=== PATIENT | female | born 1955 | race Caucasian/White ===

== ENCOUNTER 2017-04-24 20:59 | Observation (INO) | payer BC, OTHER ==
[2017-04-24] MEDS ORDERED: ONDANSETRON 4 MG/2 ML VIAL IVP STA (21:20)
[2017-04-24] MEDS ORDERED: SODIUM CHLORIDE 0.9% 1,000 ML IV STA (21:20)
[2017-04-24] MEDS ORDERED: NITROGLYCERIN OINT 1 INCH/GM PACKET TOPICAL STA (21:20)
[2017-04-24] MEDS ORDERED: ASPIRIN 81 MG PO STA (21:20)
--- NOTE | 2017-04-24 21:49 | ED ---
Chest Pain HPI - General Chief Complaint: Chest Pain Stated Complaint: Chest pain Time Seen by Provider: 04/24/17 21:08 Source: patient Mode of arrival: wheelchair Limitations: no limitations - History of Present Illness Initial Comments: 62 years old female presented with a chest pain it started 4 PM it is located at the border of epigastrium as well as lower chest does not radiate his stays right there she has no history of heart disease in the past she status post gallbladder disease andshe is status post cholecystectomy denies any peptic ulcer disease denies any nausea no vomiting no cold sweats no shortness of breath and there is no pleuritic chest pain at all depressed do not aggravate the pain. No abdominal pain no frequency urgency dysuria no symptoms of TIA or CVA - Related Data Home Medications Medication Instructions Recorded Confirmed Aspirin 81 mg PO DAILY 01/28/14 04/24/17 Bumetanide 0.5 mg PO DAILY 08/21/14 04/24/17 Omeprazole [PriLOSEC] 20 mg PO DAILY PRN 08/21/14 04/24/17 traMADol HCl [Ultram] 50 - 100 mg PO Q6H PRN 08/21/14 04/24/17 Acetaminophen Tab [Tylenol] 1,000 mg PO Q6HR PRN 08/22/15 04/24/17 Albuterol Sulfate [Accuneb] 1.25 mg INHALATION Q6HR PRN 04/24/17 04/24/17 Allergies Allergy/AdvReac Type Severity Reaction Status Date / Time morphine Allergy Severe Chest Pain Verified 04/24/17 21:15 adhesive Allergy Rash/Hives Verified 04/24/17 21:15 codeine Allergy Rapid Verified 04/24/17 21:15 Heart Rate Iodinated Contrast- Oral and Allergy Vomiting Verified 04/24/17 21:15 IV Dye [Iodinated Contrast Media - IV Dye] naproxen [From Naprosyn] Allergy Nausea & Verified 04/24/17 21:15 Vomiting & Diarrhea Sulfa (Sulfonamide Allergy Rash/Hives Verified 04/24/17 21:15 Antibiotics) hydromorphone HCl AdvReac Nausea & Verified 04/24/17 21:15 [From Dilaudid] Vomiting Review of Systems ROS Statement: Those systems with pertinent positive or pertinent negative responses have been documented in the HPI. ROS Other: All systems not noted in ROS Statement are negative. EKG Findings - EKG Comments: EKG Findings:: EKG is normal sinus rhythm ventricular rate is 79 RI interval is 136 QRS duration is 90 QT/QTC 394/4 5150 mL EKG does not reveal ST elevation or ST depression Past Medical History Past Medical History: Asthma, COPD, GERD/Reflux, Hyperlipidemia, Hypertension, Pneumonia Additional Past Medical History / Comment(s): HYPOGLYCEMIA History of Any Multi-Drug Resistant Organisms: None Reported Past Surgical History: Cholecystectomy, Hysterectomy Additional Past Surgical History / Comment(s): COLONOSCOPY Past Anesthesia/Blood Transfusion Reactions: No Reported Reaction Past Psychological History: No Psychological Hx Reported Smoking Status: Former smoker Past Alcohol Use History: None Reported Past Drug Use History: None Reported - Past Family History Mother Family Medical History: Dementia, Hypertension Additional Family Medical History / Comment(s): Parkinson's Father Family Medical History: Pneumonia General Exam - General Exam Comments Initial Comments: General: The patient is awake and alert, in no distress, and does not appear acutely ill. Skin: Skin is warm and dry and no rashes or lesions are noted. Eye: Pupils are equal, round and reactive to light, extra-ocular movements are intact; there is normal conjunctiva bilaterally. Ears, nose, mouth and throat: There are moist mucous membranes and no oral lesions. Neck: The neck is supple, there is no tenderness or JVD. Cardiovascular: There is a regular rate and rhythm. No murmur, rub or gallop is appreciated. Respiratory: To auscultation bilateral, no wheezing no rhonchi no distress respiratory muhammad noticed Gastrointestinal: Mildly tender in epigastric area positive bowel sounds no guarding no rebounds Back: There is no tenderness to palpation in the midline. There is no obvious deformity. Musculoskeletal: Normal ROM, no tenderness, There is no pedal edema. There is no calf tenderness or swelling. No cords were appreciated. Neurological: CN II-XII intact, Cranial nerves III through XII are intact. There are no obvious motor or sensory deficits. Coordination appears grossly intact. Speech is normal. Psychiatric: Cooperative, appropriate mood & affect, normal judgment. Limitations: no limitations Course Vital Signs 04/24/17 21:02 Temperature 98.6 F Pulse Rate 86 Respiratory 18 Rate Blood Pressure 144/91 O2 Sat by Pulse 92 L Oximetry Patient was reassessed at 2300, troponin, EKG, CBC, LFTs, pancreatic enzymes are within normal range considering that she is above 50 and she has multiple comorbidities one set of negative cardiac markers does not really rule out ischemic heart disease considering disc factors her BMI is 43.1 she has a history of hypertension and then numb do the observation admission for 3 sets of cardiac markers and cardiology consult him a this was discussed with the patient she agrees with the Disposition Clinical Impression: Chest pain Disposition: ADMITTED IP TO THIS HOSP Condition: Good Referrals: Toby Dobson MD [Primary Care Provider] - 1-2 days
[2017-04-24 22:13] LABS: Basophils # (A) 0.1 k/uL (0-0.2); Basophils % (A) 1 %; Eosinophils # (A) 0.1 k/uL (0-0.7); Eosinophils % (A) 2 %; HCT 44.4 % (34.0-46.0); HGB 14.2 gm/dL (11.4-16.0); Lymphocytes # (A) 1.4 k/uL (1.0-4.8); Lymphocytes % (A) 21 %; MCH 28.9 pg (25.0-35.0); MCHC 31.9 g/dL (31.0-37.0); MCV 90.7 fL (80.0-100.0); Mean Platelet Volume 7.5; Monocytes # (A) 0.4 k/uL (0-1.0); Monocytes % (A) 6 %; Neutrophils # (A) 4.6 k/uL (1.3-7.7); Neutrophils % (A) 68 %; Platelet Count 244 k/uL (150-450); RDW 14.1 % (11.5-15.5); WBC 6.8 k/uL (3.8-10.6)
[2017-04-24 22:18] LABS: Partial Thromboplastin Time 23.4 sec (22.0-30.0); Prothrombin Time 10.1 sec (9.0-12.0)
[2017-04-24 22:19] LABS: ALT 43 U/L (9-52); AST 37 U/L (14-36); Albumin 4.3 g/dL (3.5-5.0); Alkaline Phosphatase 95 U/L (38-126); Amylase 42 U/L (30-110); Anion Gap 9 mmol/L; Blood Urea Nitrogen 16 mg/dL (7-17); Calcium 9.4 mg/dL (8.4-10.2); Carbon Dioxide 31 mmol/L (22-30); Chloride 102 mmol/L (98-107); Glucose 110 mg/dL (74-99); Lipase 117 U/L (23-300); Potassium 4.6 mmol/L (3.5-5.1); Sodium 142 mmol/L (137-145); Total Bilirubin 0.6 mg/dL (0.2-1.3); Total Protein 7.6 g/dL (6.3-8.2)
[2017-04-24 22:30] LABS: Creatine Kinase 45 U/L (30-135)
[2017-04-24 22:43] LABS: Creatine Kinase MB <0.2 ng/mL (0.0-2.4); Troponin I <0.012 ng/mL (0.000-0.034)
--- NOTE | 2017-04-24 22:56 | XR ---
EXAMINATION TYPE: XR chest 2V DATE OF EXAM: 04/24/2017 COMPARISON: 01/28/2014 HISTORY: Chest pain TECHNIQUE: Frontal and lateral views of the chest are obtained. FINDINGS: There is no heart failure. There is mild coarsening of interstitial markings. Thoracic aor ta is atheromatous. I see no pleural effusion. There is small linear density in the left lower lung f ield. Bony thorax appears intact. IMPRESSION: Subsegmental atelectasis in the left lower lobe. No heart failure. Normal heart. There i s improved aeration of the left lower lobe compared to old exam.
[2017-04-24] MEDS ORDERED: NITROGLYCERIN SL TABS 0.4 MG TAB SUBLINGUAL PRN (23:13)
[2017-04-24] MEDS ORDERED: ALBUTEROL NEBULIZED 2.5 MG/3 ML INHALATION PRN (23:24)
[2017-04-24] MEDS ORDERED: PANTOPRAZOLE 40 MG TABLET PO PRN (23:24)
[2017-04-24] MEDS ORDERED: traMADol 50 MG TAB PO PRN (23:24)
[2017-04-24] MEDS ORDERED: ONDANSETRON 4 MG/2 ML VIAL IM STA (23:59)
[2017-04-25 00:24] VITALS: RESP 18
[2017-04-25 00:34] VITALS: BMI 43.1
[2017-04-25] MEDS: ACETAMINOPHEN TAB 500 MG TAB PO PRN ×2 (00:46→07:28)
[2017-04-25 04:36] LABS: Cholesterol 189 mg/dL (<200); HDL Cholesterol 40 mg/dL (40-60); LDL Cholesterol,Calculated 126 mg/dL (0-99); Triglycerides 113 mg/dL (<150)
[2017-04-25 04:48] LABS: Creatine Kinase 40 U/L (30-135)
[2017-04-25 05:02] LABS: Creatine Kinase MB <0.2 ng/mL (0.0-2.4); Troponin I <0.012 ng/mL (0.000-0.034)
[2017-04-25 08:03] VITALS: PULSE 80
[2017-04-25 08:42] LABS: Glucose,Whole Blood 96 mg/dL (75-99)
[2017-04-25] MEDS ORDERED: BUMETANIDE 0.5 MG TABLET PO SCH (09:00)
[2017-04-25] MEDS ORDERED: ASPIRIN 325 MG TAB PO SCH (09:00)
--- NOTE | 2017-04-25 10:21 | CONS ---
CONSULTATION Ms. Lassiter is a 62-year-old female, who is seen for cardiac evaluation. Patient gives a history that she went out for lunch, she had some chicken wings and a vanilla milkshake and after that she started having some epigastric discomfort which was a sharp pain radiating up to the substernal area. The pain was increasing when she turns back, she did not had any nausea vomiting or sweating. Patient came to the emergency room. EKG was unremarkable. Patient was admitted to the hospital. Since admission, patient is not having any pain and the cardiac enzymes are normal. Patient has a history of hypertension, atypical angina. Patient had a cardiac catheterization done about 1 year ago which did not show any significant coronary artery disease. HOME MEDICATIONS: Include aspirin, Prilosec, AcuNav. Patient is allergic to NAPROXEN, IODINE DYE and DILAUDID. REVIEW OF THE SYSTEM: Otherwise unremarkable. PAST MEDICAL HISTORY: Includes a history of cholecystectomy, hysterectomy, history of colonoscopy. SMOKING HISTORY: Patient is a former smoker. PHYSICAL EXAMINATION: At present reveals a 62-year-old, obesely-built female who does not appear to be in any acute distress. Patient's blood pressure is 140/80 mmHg. HEENT examination is negative. Neck is supple. There is no increase in jugular venous pressure. Both the carotid pulses are felt. There is no bruit. Chest is symmetrical. Heart, the PMI is not felt. First and second heart sounds are normal. There is no evidence of any murmur. Lungs are clinically clear to auscultation and percussion. Abdomen is soft. Liver and spleen are not enlarged. Bowel sounds are heard. Extremities, peripheral pulsations are 2+. EKG shows normal sinus rhythm without any acute ischemic changes. The patient two sets of cardiac enzymes are normal. IMPRESSION: Atypical chest pain. EKGs and cardiac enzymes are normal. We will do the echo and Doppler study. If the Echo and Doppler study done are normal, patient can be discharged home. She will follow with Dr. Crowell. Can have a stress test as an outpatient. MMODL / IJN: [id number] /
[2017-04-25 10:49] LABS: Creatine Kinase 43 U/L (30-135)
[2017-04-25 11:02] LABS: Creatine Kinase MB <0.2 ng/mL (0.0-2.4); Troponin I <0.012 ng/mL (0.000-0.034)
[2017-04-25 12:08] VITALS: BP 160/84; TEMP 97.7
--- NOTE | 2017-04-25 13:10 | ECHOF ---
Referral Reason:chest pain MEASUREMENTS -------- HEIGHT: 170.2 cm WEIGHT: 124.7 kg BP: 119/76 IVSd: 1.5 cm (0.6 - 1.1) LVIDd: 4.8 cm (3.9 - 5.3) LVPWd: 1.4 cm (0.6 - 1.1) EDV(Teich): 105 ml IVSs: 1.8 cm LVIDs: 3.0 cm LVPWs: 1.8 cm ESV(Teich): 34 ml EF(Teich): 68 % %FS: 38 % SV(Teich): 71 ml Ao asc: 3.3 cm RVIDd: 2.7 cm (< 3.3) LALs A4C: 6.0 cm LAAs A4C: 12.8 cm LAESV A-L A4C: 23 ml LAESV MOD A4C: 22 ml LALs A2C: 5.4 cm LAAs A2C: 15.7 cm LAESV A-L A2C: 38 ml LAESV MOD A2C: 37 ml LAESV(A-L): 31 ml LAESV Index (A-L): 13.50 ml/m Ao Diam: 3.0 cm (2.0 - 3.7) LA Diam: 3.1 cm (2.7 - 3.8) AV Cusp: 1.8 cm (1.5 - 2.6) EPSS: 0.5 cm MV E Kvng: 0.83 m/s MV DecT: 231 ms MV Dec [place]: 3.6 m/s MV A Kvng: 0.90 m/s MV E/A Ratio: 0.92 AV Vmax: 1.75 m/s AV maxP.27 mmHg TR Vmax: 1.47 m/s TR maxP.63 mmHg RAP: 5.00 mmHg RVSP: 13.63 mmHg MV EF SLOPE: 79.96 mm/s (70 - 150) MV EXCURSION: 1.95 cm (> 18.000) FINDINGS -------- Sinus rhythm. This was a technically difficult study with suboptimal views. The left ventricular size is normal. There is mild concentric left ventricular hypertrophy. Overa ll left ventricular systolic function is normal with, an EF between 55 - 60 %. The right ventricle is normal in size and function. Normal LA size by volume 22+/-6 ml/m2. The right atrium was not well visualized. 3ml of Lumason was utilized for enhancement of images. Aortic valve is trileaflet and is mildly thickened. There is no evidence of aortic regurgitation. There is no evidence of aortic stenosis. The mitral valve leaflets are mildly thickened. There is trace to mild mitral regurgitation. Trace tricuspid regurgitation present. Right ventricular systolic pressure is normal at < 35 mmHg. There is no evidence of pulmonary hypertension. The pulmonic valve is normal. The aortic root size is normal. IVC Not well visulized. The pericardium is normal. There is no pericardial effusion. CONCLUSIONS -------- 1. Sinus rhythm. 2. This was a technically difficult study with suboptimal views. 3. The left ventricular size is normal. 4. There is mild concentric left ventricular hypertrophy. 5. Overall left ventricular systolic function is normal with, an EF between 55 - 60 %. 6. Normal LA size by volume 22+/-6 ml/m2. 7. The right atrium was not well visualized. 8. 3ml of Lumason was utilized for enhancement of images. 9. Aortic valve is trileaflet and is mildly thickened. 10. The mitral valve leaflets are mildly thickened. 11. There is trace to mild mitral regurgitation. 12. Trace tricuspid regurgitation present. 13. Right ventricular systolic pressure is normal at < 35 mmHg. 14. There is no evidence of pulmonary hypertension. 15. The aortic root size is normal. 16. IVC Not well visulized. 17. There is no pericardial effusion. APPLICATIONS SCIENTIST: Yehuda Casarez RDCS
--- NOTE | 2017-04-25 23:51 | HP ---
HISTORY AND PHYSICAL HISTORY AND PHYSICAL AND DISCHARGE: DATE OF SERVICE: 04/25/2017. CHIEF COMPLAINT: Chest pain. HISTORY OF PRESENT ILLNESS: This 62-year-old woman with a past medical history of multiple medical problems, including asthma, COPD, GERD, hypertension, hyperlipidemia, history of hypoglycemia, history of cholecystitis being followed by Dr. Toby Dobson in the outpatient setting was admitted with chest pain which started at 4:00 p.m. which was located in the border of epigastrium and lower chest and the patient apparently ate something. The patient also has history of gallbladder disease and because of increasing difficulty, the patient came to [facility], admitted for further evaluation and treatment. There is no history of fever, rigors, chills. No history of headache, loss of consciousness or seizures. PAST MEDICAL HISTORY: History of asthma, COPD, GERD, hypertension, hyperlipidemia, history of DJD. MEDICATIONS PRIOR TO ADMISSION: Include the home medications are: 1. Ultram 50-100 mg every 6 hours p.r.n. 2. Prilosec 20 mg daily. 3. Toprol-XL 25 mg. 4. Bumex 4.5 mg daily. 5. Aspirin 81 mg daily. 6. AccuNeb 1.25 mg every 6 hours. 7. Tylenol 1000 mg every 6 hours p.r.n. ALLERGIES: MORPHINE CODEINE and IODINATED CONTRAST, NAPROSYN, SULFA, HYDROMORPHONE, DILAUDID. FAMILY HISTORY: History of pneumonia, Parkinson's in the family. SOCIAL HISTORY: Previous history of smoking. No history of current smoking, alcohol intake. REVIEW OF SYSTEMS: ENT: No diminished hearing, diminished vision. CARDIOVASCULAR: As mentioned earlier. RESPIRATORY: As mentioned earlier. GI: As mentioned earlier. : No dysuria. NERVOUS: No numbness or weakness. ALLERGY/IMMUNOLOGY: No asthma or hay fever. MUSCULOSKELETAL: As mentioned earlier. HEMATOLOGY/ONCOLOGY: No history of anemia. ENDOCRINE: No history of diabetes, hypothyroidism. CONSTITUTIONAL: As mentioned earlier. DERMATOLOGY: Negative. RHEUMATOLOGY: Negative. PSYCHIATRY: As mentioned earlier. PHYSICAL EXAM: Alert, oriented x3. Pulse 80, blood pressure 160/84, respirations 18, temperature 97.2, pulse ox 98% on room air. HEENT: Conjunctivae normal. NECK: No jugular venous distention. CARDIOVASCULAR: S1, S2 muffled. RESPIRATORY: Breath sounds diminished in the bases. A few scattered rhonchi. No crackles. ABDOMEN: Soft, nontender. No hepatosplenomegaly. Obese. LEGS: No edema. No swelling. NERVOUS SYSTEM: Higher functions as mentioned earlier. Moves all 4 limbs. No focal motor or sensory deficits. LYMPHATIC: No lymphadenopathy in neck or axillae. SKIN: No ulcer, rash or bleeding. JOINTS: No active deforming arthropathy. LAB DATA: CBC within normal limits. CO2 is 31 and glucose 110. The ALT is 126. ASSESSMENT: 1. Chest pain, possibly gastroesophageal reflux disease. Myocardial infarction ruled out. 2. History of asthma, chronic obstructive pulmonary disease. 3. History of gastroesophageal reflux disease. 4. Hypertension. 5. Hyperlipidemia. 6. History of degenerative joint disease. 8. History of Clostridium difficile colitis. 9. History of hysterectomy. 10.Remote history of nicotine dependence. RECOMMENDATIONS AND DISCUSSION: In this 62-year-old woman who presented with multiple medical issues, at this time, will monitor the patient closely. Cardiology has seen the patient and recommended outpatient followup. The current myocardial infarction ruled out and a 2D echo with Doppler was also done by Cardiology, which showed ejection fraction about 50%-60 %. Please refer to the medication reconciliation sheet for home medications. The patient is supposed to resume the home medications. Follow closely with primary physician, Cardiology in outpatient setting. MMODL / IJN: [id number] / BRITT
== END 2017-04-25 13:30 | disposition home or self-care (01) ==
LOC: EC 20:59 → 3OBS 23:13
PROVIDERS: ADMIT Hospitalist; ATTEND Hospitalist
DX: R07.89 Other chest pain (principal); R10.13 Epigastric pain; R07.2 Precordial pain; Z90.49 Acquired absence of other specified parts of digestive tract; J44.9 Chronic obstructive pulmonary disease, unspecified; K21.9 Gastro-esophageal reflux disease without esophagitis; E78.5 Hyperlipidemia, unspecified; I10 Essential (primary) hypertension; Z68.41 Body mass index [BMI] 40.0-44.9, adult; E66.9 Obesity, unspecified; M19.90 Unspecified osteoarthritis, unspecified site; Z79.82 Long term (current) use of aspirin; Z79.899 Other long term (current) drug therapy; Z88.5 Allergy status to narcotic agent; Z88.6 Allergy status to analgesic agent; Z91.041 Radiographic dye allergy status; Z88.2 Allergy status to sulfonamides; Z91.048 Other nonmedicinal substance allergy status; Z87.01 Personal history of pneumonia (recurrent); Z87.891 Personal history of nicotine dependence; Z82.49 Family history of ischemic heart disease and other diseases of the circulatory system; Z82.0 Family history of epilepsy and other diseases of the nervous system; Z86.19 Personal history of other infectious and parasitic diseases; Z90.710 Acquired absence of both cervix and uterus
CPT/HCPCS: 99285; 96372 ×2; 96361 ×3; 96360 ×2; 36415; 93306; 80061; 80053; 82150; 82550 ×2; 82553 ×2; 83690; 83735; 84484 ×2; 85025; 85610; 85730; 71046; G0378 ×2; J2405; Q9950

== ENCOUNTER 2019-02-01 02:31 | Inpatient (IN) | payer BC ==
[2019-02-01] MEDS ORDERED: SODIUM CHLORIDE 0.9% 1,000 ML IV STA ×2 (02:36)
[2019-02-01 03:32] LABS: Basophils # (A) 0.1 k/uL (0-0.2); Basophils % (A) 1 %; Eosinophils # (A) 0.1 k/uL (0-0.7); Eosinophils % (A) 1 %; HCT 45.6 % (34.0-46.0); HGB 14.9 gm/dL (11.4-16.0); Lymphocytes # (A) 1.7 k/uL (1.0-4.8); Lymphocytes % (A) 17 %; MCH 30.3 pg (25.0-35.0); MCHC 32.7 g/dL (31.0-37.0); MCV 92.7 fL (80.0-100.0); Mean Platelet Volume 7.1; Monocytes # (A) 0.4 k/uL (0-1.0); Monocytes % (A) 4 %; Neutrophils # (A) 7.7 k/uL (1.3-7.7); Neutrophils % (A) 76 %; Platelet Count 261 k/uL (150-450); RBC 4.92 m/uL (3.80-5.40); RDW 13.3 % (11.5-15.5); WBC 10.1 k/uL (3.8-10.6)
[2019-02-01] MEDS ORDERED: traMADol 50 MG TAB PO STA (03:51)
[2019-02-01 04:09] LABS: ALT 27 U/L (9-52); AST 27 U/L (14-36); African American GFR (CKD) >90 (>60 ml/min/1.73 sqM); Albumin 4.2 g/dL (3.5-5.0); Alkaline Phosphatase 73 U/L (38-126); Amylase 191 U/L (30-110); Anion Gap 8 mmol/L; Blood Urea Nitrogen 12 mg/dL (7-17); Carbon Dioxide 27 mmol/L (22-30); Chloride 104 mmol/L (98-107); Glucose 106 mg/dL (74-99); Non-African American GFR(CKD) >90 (>60 ml/min/1.73 sqM); Potassium 4.7 mmol/L (3.5-5.1); Sodium 139 mmol/L (137-145); Total Bilirubin 0.9 mg/dL (0.2-1.3); Total Protein 7.5 g/dL (6.3-8.2)
--- NOTE | 2019-02-01 04:09 | ED ---
Abdominal Pain HPI - General Chief Complaint: Abdominal Pain Stated Complaint: Pancreatitis Time Seen by Provider: 02/01/19 02:34 Source: patient, EMS Mode of arrival: EMS Limitations: no limitations - History of Present Illness Initial Comments: Opal is a 64-year-old female with a history of pancreatitis number of years ago, at that time the concluded that her pancreatitis was due to medication she was on, she cannot recall the medication. Patient reports that earlier today she developed severe abdominal pain radiating to her back and throughout her body. Pain was associated with nausea but no vomiting or change in bowel habits. Patient sought care at an outside facility and labs confirmed acute pancreatitis with a lipase of greater than 2000. Due to patient's multiple medication ALLERGIES she was not given any analgesics. She is given 1 L of IV fluids and transferred here for further management. - Related Data Home Medications Medication Instructions Recorded Confirmed Aspirin 81 mg PO DAILY 01/28/14 04/25/17 Bumetanide 0.5 mg PO DAILY 08/21/14 04/25/17 Omeprazole [PriLOSEC] 20 mg PO DAILY PRN 08/21/14 04/25/17 traMADol HCl [Ultram] 50 - 100 mg PO Q6H PRN 08/21/14 04/25/17 Acetaminophen Tab [Tylenol] 1,000 mg PO Q6HR PRN 08/22/15 04/25/17 Albuterol Sulfate [Accuneb] 1.25 mg INHALATION Q6HR PRN 04/24/17 04/25/17 Metoprolol Succinate (ER) [Toprol 25 mg PO DAILY 04/25/17 04/25/17 XL] Allergies Allergy/AdvReac Type Severity Reaction Status Date / Time morphine Allergy Severe Chest Pain Verified 04/24/17 21:15 adhesive Allergy Rash/Hives Verified 04/24/17 21:15 codeine Allergy Rapid Verified 04/24/17 21:15 Heart Rate Iodinated Contrast Media Allergy Vomiting Verified 04/24/17 21:15 [Iodinated Contrast Media - IV Dye] naproxen [From Naprosyn] Allergy Nausea & Verified 04/24/17 21:15 Vomiting & Diarrhea prednisone Allergy Rash/Hives Verified 02/01/19 02:57 Sulfa (Sulfonamide Allergy Rash/Hives Verified 04/24/17 21:15 Antibiotics) acetaminophen [From Vicodin] AdvReac Chest Pain Verified 02/01/19 02:59 budesonide AdvReac Rapid Verified 02/01/19 02:58 Heart Rate hydrocodone [From Vicodin] AdvReac Chest Pain Verified 02/01/19 02:59 hydromorphone HCl AdvReac Nausea & Verified 04/24/17 21:15 [From Dilaudid] Vomiting Review of Systems ROS Statement: Those systems with pertinent positive or pertinent negative responses have been documented in the HPI. ROS Other: All systems not noted in ROS Statement are negative. Past Medical History Past Medical History: Asthma, COPD, GERD/Reflux, Hyperlipidemia, Hypertension, Osteoarthritis (OA), Pneumonia Additional Past Medical History / Comment(s): HYPOGLYCEMIA, Diverticulitis History of Any Multi-Drug Resistant Organisms: C-DIFF Date of last positivie culture/infection: 07/2015 MDRO Source:: stool Past Surgical History: Cholecystectomy, Heart Catheterization, Hysterectomy Additional Past Surgical History / Comment(s): COLONOSCOPY Past Anesthesia/Blood Transfusion Reactions: No Reported Reaction Past Psychological History: No Psychological Hx Reported Additional Psychological History / Comment(s): Pt resides with spouse and child. She is normally independent. She uses a cane if needed. She has no home care. She drives a car. Smoking Status: Former smoker Past Alcohol Use History: None Reported Additional Past Alcohol Use History / Comment(s): Pt started smoking approximately 1977 and smoked for about 30 yrs. She was up to about 2 1/2 ppd. She quit smoking in 2007. Pt denies alcohol or drug use of any kind. Past Drug Use History: None Reported - Past Family History Mother Family Medical History: Dementia, Hypertension Additional Family Medical History / Comment(s): Parkinson's Father Family Medical History: Pneumonia General Exam - General Exam Comments Initial Comments: Physical Exam GENERAL: Patient is well-developed and well-nourished. Patient is nontoxic and well-hydrated and is in no distress. HENT: Normocephalic, Atraumatic. EYES: PERRL, EOMI PULMONARY: Unlabored respirations. CARDIOVASCULAR: RRR Warm and well perfused extremities ABDOMEN: Generalized tenderness SKIN: No rashes or bruising : Deferred NEUROLOGIC: Alert and oriented Normal speech Normal gait MUSCULOSKELETAL: Moving all extremities with no apparent injury PSYCHIATRIC: No SI/HI Limitations: no limitations Course Vital Signs 02/01/19 02:53 Temperature 98.1 F Pulse Rate 82 Respiratory 20 Rate Blood Pressure 166/93 O2 Sat by Pulse 96 Oximetry Medical Decision Making - Medical Decision Making Patient care was discussed with transferring physician, patient was seen and evaluated upon arrival Repeat labs were obtained Additional IV fluids were ordered IV fluid were ordered continuous liter high flow rate due to pancreatitis Patient reports adverse reactions to IV pain medications including morphine and Dilaudid, patient states she can only tolerate tramadol which she takes at home. Patient declining IV pain medications. Patient to be admitted - Lab Data Result diagrams: 02/01/19 03:25 02/01/19 03:25 Lab Results 02/01/19 02/01/19 Range/Units 03:25 03:25 WBC 10.1 (3.8-10.6) k/uL RBC 4.92 (3.80-5.40) m/uL Hgb 14.9 (11.4-16.0) gm/dL Hct 45.6 (34.0-46.0) % MCV 92.7 (80.0-100.0) fL MCH 30.3 (25.0-35.0) pg MCHC 32.7 (31.0-37.0) g/dL RDW 13.3 (11.5-15.5) % Plt Count 261 (150-450) k/uL Neutrophils % 76 % Lymphocytes % 17 % Monocytes % 4 % Eosinophils % 1 % Basophils % 1 % Neutrophils # 7.7 (1.3-7.7) k/uL Lymphocytes # 1.7 (1.0-4.8) k/uL Monocytes # 0.4 (0-1.0) k/uL Eosinophils # 0.1 (0-0.7) k/uL Basophils # 0.1 (0-0.2) k/uL Sodium 139 (137-145) mmol/L Potassium 4.7 (3.5-5.1) mmol/L Chloride 104 (98-107) mmol/L Carbon Dioxide 27 (22-30) mmol/L Anion Gap 8 mmol/L BUN 12 (7-17) mg/dL Creatinine 0.61 (0.52-1.04) mg/dL Est GFR (CKD-EPI)AfAm >90 (>60 ml/min/1.73 sqM) Est GFR (CKD-EPI)NonAf >90 (>60 ml/min/1.73 sqM) Glucose 106 H (74-99) mg/dL Calcium 9.0 (8.4-10.2) mg/dL Total Bilirubin 0.9 (0.2-1.3) mg/dL AST 27 (14-36) U/L ALT 27 (9-52) U/L Alkaline Phosphatase 73 (38-126) U/L Total Protein 7.5 (6.3-8.2) g/dL Albumin 4.2 (3.5-5.0) g/dL Amylase 191 H (30-110) U/L Lipase 2560 H (23-300) U/L Disposition Clinical Impression: Acute pancreatitis Disposition: ADMITTED IP TO THIS [facility] Condition: Stable Is patient prescribed a controlled substance at d/c from ED?: No
[2019-02-01] MEDS ORDERED: NALOXONE 0.4 MG/ML 1 ML VIAL IV PRN (05:43)
[2019-02-01] MEDS ORDERED: ACETAMINOPHEN TAB 325 MG TAB PO PRN (09:31)
[2019-02-01] MEDS ORDERED: IBUPROFEN 400 MG TAB PO PRN (09:32)
[2019-02-01] MEDS ORDERED: PANTOPRAZOLE 40 MG TABLET PO PRN (09:32)
[2019-02-01] MEDS: ACETAMINOPHEN TAB 500 MG TAB PO PRN ×2 (09:39→21:37)
[2019-02-01] MEDS: METOPROLOL SUCCINATE (ER) 25 MG TAB.ER.24H PO SCH (09:39)
[2019-02-01] MEDS ORDERED: KETOROLAC 30 MG/ML 1 ML VIAL IM PRN (09:48)
[2019-02-01] MEDS ORDERED: ALBUTEROL NEBULIZED 1.25 MG/3 ML INHALATION PRN (12:41)
[2019-02-01] MEDS ORDERED: MORPHINE SULFATE 4 MG/ML SYRINGE IVP PRN (12:52)
[2019-02-01] MEDS ORDERED: IPRATROPIUM-ALBUTEROL 3 ML NEB INHALATION PRN (12:53)
[2019-02-01 13:19] LABS: Cholesterol 190 mg/dL (<200); HDL Cholesterol 39 mg/dL (40-60); LDL Cholesterol,Calculated 131 mg/dL (0-99); Triglycerides 102 mg/dL (<150)
[2019-02-01] MEDS: ONDANSETRON 4 MG/2 ML VIAL IVP PRN ×2 (13:46→21:38)
[2019-02-01] MEDS: traMADol 50 MG TAB PO PRN (13:49)
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
--- NOTE | 2019-02-01 16:26 | US ---
EXAMINATION TYPE: US gallbladder DATE OF EXAM: 02/01/2019 COMPARISON: NONE CLINICAL HISTORY: pancreatitis, r/o biliary stone. EXAM MEASUREMENTS: Liver Length: 18.0 cm Gallbladder Wall: Surgically absent CBD: 1.2 cm Right Kidney: 10.0 x 4.9 x 5.5 cm Morbidly obese patient, technically difficult and limited study. Pancreas: Obscured by bowel gas Liver: Increased attenuation, decreased visualization of vessels suggestive of fatty infiltrate. Thi s limits evaluation for hepatic mass. Gallbladder: Surgically absent Evidence for sonographic Judge's sign: no CBD: dilated Right Kidney: wnl IMPRESSION: 1. Degree of common bile duct dilatation is beyond upper limits of normal for postcholecystectomy sta tus. MRCP could be utilized for further evaluation. 2. Sonographic findings most commonly related to hepatic steatosis. Correlate with liver function tatiana ts.
[2019-02-01] MEDS: PANTOPRAZOLE 40 MG/10 ML VIAL IVP SCH ×2 (16:33→21:38)
[2019-02-01] MEDS: KETOROLAC 30 MG/ML 1 ML VIAL IVP PRN ×2 (16:34→23:24)
[2019-02-01] MEDS: SODIUM CHLORIDE 0.9% 1,000 ML IV SCH ×2 (16:49→23:37)
[2019-02-01] MEDS ORDERED: PANTOPRAZOLE 40 MG TABLET PO SCH (17:30)
[2019-02-01 19:23] LABS: Glucose,Whole Blood 92 mg/dL (75-99)
[2019-02-02] MEDS ORDERED: ALBUTEROL NEBULIZED 2.5 MG/3 ML INHALATION PRN (03:48)
[2019-02-02] MEDS: ACETAMINOPHEN TAB 500 MG TAB PO PRN ×4 (04:54→23:37)
[2019-02-02] MEDS: ONDANSETRON 4 MG/2 ML VIAL IVP PRN ×2 (04:54→14:42)
[2019-02-02] MEDS: SODIUM CHLORIDE 0.9% 1,000 ML IV SCH ×4 (05:01→23:36)
[2019-02-02 06:51] LABS: Glucose,Whole Blood 79 mg/dL (75-99)
[2019-02-02 07:18] LABS: HCT 41.2 % (34.0-46.0); HGB 12.9 gm/dL (11.4-16.0); Hypochromasia Moderate; MCH 30.4 pg (25.0-35.0); MCHC 31.3 g/dL (31.0-37.0); MCV 96.9 fL (80.0-100.0); Mean Platelet Volume 7.1; Platelet Count 197 k/uL (150-450); RBC 4.25 m/uL (3.80-5.40); RDW 13.2 % (11.5-15.5); WBC 6.7 k/uL (3.8-10.6)
[2019-02-02] MEDS: METOPROLOL SUCCINATE (ER) 25 MG TAB.ER.24H PO SCH (07:33)
[2019-02-02] MEDS: PANTOPRAZOLE 40 MG/10 ML VIAL IVP SCH ×2 (07:33→20:18)
[2019-02-02] MEDS: KETOROLAC 30 MG/ML 1 ML VIAL IVP PRN ×3 (07:34→21:53)
[2019-02-02] MEDS: ASPIRIN 81 MG PO SCH (07:35)
[2019-02-02 07:51] LABS: ALT 35 U/L (9-52); AST 25 U/L (14-36); African American GFR (CKD) >90 (>60 ml/min/1.73 sqM); Albumin 3.3 g/dL (3.5-5.0); Alkaline Phosphatase 57 U/L (38-126); Anion Gap 9 mmol/L; Blood Urea Nitrogen 8 mg/dL (7-17); Calcium 7.7 mg/dL (8.4-10.2); Carbon Dioxide 20 mmol/L (22-30); Chloride 111 mmol/L (98-107); Glucose 85 mg/dL (74-99); Non-African American GFR(CKD) >90 (>60 ml/min/1.73 sqM); Potassium 3.9 mmol/L (3.5-5.1); Sodium 140 mmol/L (137-145); Total Protein 6.1 g/dL (6.3-8.2)
[2019-02-02] MEDS ORDERED: BUMETANIDE 0.5 MG TABLET PO SCH (09:00)
--- NOTE | 2019-02-02 09:51 | P.CONS ---
History of Present Illness - Reason for Consult Consult date: 02/01/19 Pancreatitis Requesting physician: Debora Glasgow - Chief Complaint Abdominal pain - History of Present Illness 64-year-old female with a medical history significant for COPD, hyperlipidemia, hypertension, osteoarthritis and GERD who presented to the hospital for evaluation of abdominal pain. The patient reports severe abdominal pain radiating into her back. She reports her pain as 8 out of 10 in intensity and constant. She reports similar episodes of pain in the past when she was diagnosed with pancreatitis. She believes that this is occurred approximately 3 times in the past. She states that on 1 occasion it was felt that the pancreatitis may be have been related to medication she was on but is unable to recall what medication it was at that time. Her also believes that on one occasion the pancreatitis was attributed to gallstones. She denies any excessive alcohol use. No new medications reported. Laboratory evaluation on presentation was significant for hemoglobin of 14.9, WBC 10.1, platelet count 261,000, amylase 191, lipase 2560, total bilirubin 0.9, alkaline phosphatase 73, AST 27, ALT 27. Review of Systems REVIEW OF SYSTEMS: CONSTITUTIONAL: Denies any fevers, chills, weight change or fatigue. CARDIOVASCULAR: Denies any chest pain, palpitations high or low blood pressures RESPIRATORY: Denies any shortness of breath, hemoptysis or cough. GENITOURINARY: No dysuria or hematuria. MUSCULOSKELETAL: No weakness reported. SKIN: Denies any new rashes or lesions, jaundice or pallor. PSYCHIATRIC: Denies any depression or anxiety. NEUROLOGY: Denies headache, denies any new focal deficits. EARS/NOSE/THROAT: No recent hearing change, congestion, nasal discharge or sore throat. EYES: No pain in eyes, discharge or change in vision. GASTROINTESTINAL: As per HPI. Past Medical History Past Medical History: Asthma, COPD, GERD/Reflux, Hyperlipidemia, Hypertension, Osteoarthritis (OA), Pneumonia Additional Past Medical History / Comment(s): HYPOGLYCEMIA, Diverticulitis History of Any Multi-Drug Resistant Organisms: C-DIFF Year Discovered:: 07/2015 MDRO Source:: stool Past Surgical History: Cholecystectomy, Heart Catheterization, Hysterectomy Additional Past Surgical History / Comment(s): COLONOSCOPY Past Anesthesia/Blood Transfusion Reactions: No Reported Reaction Past Psychological History: No Psychological Hx Reported Additional Psychological History / Comment(s): Pt resides with spouse and child. She is normally independent. She uses a cane if needed. She has no home care. She drives a car. Smoking Status: Former smoker Past Alcohol Use History: None Reported Additional Past Alcohol Use History / Comment(s): Pt started smoking approximately 1977 and smoked for about 30 yrs. She was up to about 2 1/2 ppd. She quit smoking in 2007. Pt denies alcohol or drug use of any kind. Past Drug Use History: None Reported - Past Family History Mother Family Medical History: Dementia, Hypertension Additional Family Medical History / Comment(s): Parkinson's Father Family Medical History: Pneumonia Medications and Allergies Home Medications Medication Instructions Recorded Confirmed Type Aspirin 81 mg PO DAILY 01/28/14 02/01/19 History Bumetanide 0.5 mg PO DAILY 08/21/14 02/01/19 History Omeprazole [PriLOSEC] 20 mg PO DAILY PRN 08/21/14 02/01/19 History traMADol HCl [Ultram] 50 - 100 mg PO Q6H PRN 08/21/14 02/01/19 History Acetaminophen Tab [Tylenol] 1,000 mg PO Q6HR PRN 08/22/15 02/01/19 History Albuterol Sulfate [Accuneb] 1.25 mg INHALATION Q6HR PRN 04/24/17 02/01/19 History Metoprolol Succinate (ER) [Toprol 25 mg PO DAILY 04/25/17 02/01/19 History XL] Ibuprofen [Motrin] 400 mg PO Q6HR PRN 02/01/19 02/01/19 History Allergies Allergy/AdvReac Type Severity Reaction Status Date / Time morphine Allergy Severe Chest Pain Verified 04/24/17 21:15 adhesive Allergy Rash/Hives Verified 04/24/17 21:15 codeine Allergy Rapid Verified 04/24/17 21:15 Heart Rate Iodinated Contrast Media Allergy Vomiting Verified 04/24/17 21:15 [Iodinated Contrast Media - IV Dye] naproxen [From Naprosyn] Allergy Nausea & Verified 04/24/17 21:15 Vomiting & Diarrhea prednisone Allergy Rash/Hives Verified 02/01/19 02:57 Sulfa (Sulfonamide Allergy Rash/Hives Verified 04/24/17 21:15 Antibiotics) acetaminophen [From Vicodin] AdvReac Chest Pain Verified 02/01/19 02:59 budesonide AdvReac Rapid Verified 02/01/19 02:58 Heart Rate hydrocodone [From Vicodin] AdvReac Chest Pain Verified 02/01/19 02:59 hydromorphone HCl AdvReac Nausea & Verified 04/24/17 21:15 [From Dilaudid] Vomiting Physical Exam Vitals: Vital Signs Temp Pulse Pulse Resp BP BP Pulse Ox 02/01/19 07:00 97.6 F 73 17 167/75 87 L 02/01/19 06:25 97.5 F L 90 15 145/88 85 L 02/01/19 05:59 86 16 148/78 100 02/01/19 02:53 98.1 F 82 20 166/93 96 Intake and Output 01/31/19 02/01/19 02/01/19 22:59 06:59 14:59 Other: Weight 117.934 kg On physical examination, patient appears comfortable in no apparent distress. HEAD: Normocephalic, atraumatic. EYES: No scleral icterus. No conjunctival injection. MOUTH: No lesions, tongue midline. NECK: Trachea midline, no gross abnormalities. CHEST: Clear to auscultation with no wheezing or rhonchi appreciated. HEART: S1-S2 appreciated. ABDOMEN: Soft, mildly tender to palpation. Bowel sounds are positive. No organomegaly. No guarding or rigidity. EXTREMITIES: No pedal edema. SKIN: No rashes, no jaundice. NEUROLOGIC: Alert and oriented x3. No focal deficits. Results CBC & Chem 7: 02/02/19 06:51 02/02/19 06:51 Labs: Abnormal Lab Results - Last 24 Hours (Table) 02/01/19 02/01/19 Range/Units 03:25 03:25 Glucose 106 H (74-99) mg/dL LDL Cholesterol, Calc 131 H (0-99) mg/dL HDL Cholesterol 39 L (40-60) mg/dL Amylase 191 H (30-110) U/L Lipase 2560 H (23-300) U/L Assessment and Plan Assessment: Uncomplicated pancreatitis 64-year-old female presenting with complaints of abdominal pain found to have associated elevation in her amylase and lipase consistent with diagnosis of pancreatitis. Previous episodes of pancreatitis possibly related to medications or gallstones. Currently she is status post cholecystectomy. Liver enzymes within normal limits. Unknown etiology, at this time will order autoimmune work-up. Triglycerides within normal limits. Plan: Supportive care N.p.o. Continue IV fluid hydration at 200 cc/h of lactated Ringer's Continue pain control Encourage ambulation MAGALIS and IgG4 levels ordered US abdomen ordered Patient may benefit from MRI 6 to 8 weeks for further evaluation of the pancreas and to rule out cyst/mass Thank you for allowing us to participate in the care of the patient we will continue to follow
--- NOTE | 2019-02-02 09:51 | P.CN ---
Psychiatric Consult - . Consult date: 02/02/19 Consult:: 02/02/19 09:39 IDENTIFYING DATA: This patient is a 64-year-old female who is currently lives with her and 2 grandkids in the house and is supported by her HISTORY OF PRESENT ILLNESS: The patient presented to the hospital as a transfer from an outside facility due to pancreatitis. Patient's lipase was noted to be greater than 2000 prior to admission. Patient has a history of previous episodes of pancreatitis secondary to medications which have been taken out of her medication regimen. Patient was seen at the bedside by psychiatry for suicidal ideations on arrival. Patient was seen by freelance copywriter today and was laying in bed comfortably watching TV. Patient was communicative directable and cooperative during the interview. Patient had a bright affect and was explaining about her pain which has been chronic in her back and also her medical problems including the recurrent pancreatitis. She states that she began feeling worse since Thursday in terms of epigastric pain and proceeded to the hospital. She claims that she is feeling better now with treatment and also with pain medications. She endorsed having stressors at home including being stuck in the house and feeling isolated and also having to raise her 2 grandkids as her kids are not taking care of them. She claims that she feels that her pain control has been neglected by her doctors and states that "they just think that I'm overweight and it's because of that one really there something else going on". She claims that she has felt depressed at times and claims that her mood has been "up and down". She states that she has been trying to cope with all her stressors and claims that "I would never take my life but sometimes I feel hopeless". She admits to poor sleep, no anxiety and no difficulties with concentration or appetite. At this time patient denies any suicidal or homical ideations, intent or plan. Patient denies any auditory, visual hallucinations and denies any paranoia or delusions. Patient denies using any drugs or recreational substances including alcohol or cigarettes. PAST PSYCHIATRIC HISTORY: Patient claims that she has seen a therapist in the past when she was a teenager. She denies ever seeing a psychiatrist however claims to have been on Valium, Xanax, Paxil and Zoloft in the past which she states that she did not tolerate well and does not want to take any longer. She denies ever being admitted to a health facility and denies any previous suicide attempts. PAST MEDICAL HISTORY: Pancreatitis with 3 episodes in the past, asthma, GERD, HOP, hypertension, osteoarthritis. ALLERGIES: as per EMR. CHEMICAL DEPENDENCY HISTORY: as per HPI. FAMILY PSYCHIATRIC/SUBSTANCE USE HISTORY: She states that her daughter, mother and brother all suffered from depression SOCIAL HISTORY: She states that she was born and raised in [place] and currently lives in [place]. Patient completed her GED in school and did not do any college. 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 Patient currently is lives in a house with her and 2 grandkids who she cares for and is supported by her . MENTAL STATUS EXAM: General Appearance: Patient appears to be overweight, stated age is alert, pleasant, and cooperative. Fair eye contact. Mild distress secondary to pain. Behavior: Patient is calmly lying in bed without any agitated behavior. Speech: Patient's speech is fluent and nonpressured. Mood/Affect: Patient reports their mood is "up and down", affect is congruent Suicidality/Homicidality: Patient denies having any suicidal or homicidal ideation intent or plan. Perceptions: Patient denies any auditory or visual hallucinations. Though content/process: There is no evidence of any delusional thought content and thought process is linear and goal-directed. Memory and concentration: AOX3, grossly intact for the purposes of this session. Can spell "WORLD" backwards Judgment and insight: fair IMPRESSIONS: Depressive disorder unspecified PLAN: -At this time patient does NOT meet criteria for inpatient psychiatric admission. -It appears that depression is most likely exacerbated by pain and medical problems, continue with pain management and treatment of underlying medical issues. -Would recommend the following medication changes/additions: Patient was offered another antidepressant medication including Remeron and Lexapro and patient decl ined them at this time stating that she feels that with better pain control and outpatient follow-up and therapy she will improve. Patient also states that she would like to think about the medications and possibly talk to her outpatient doctor about them. -spray worker to provide patient with outpatient mental health resources including therapists if patient needs that prior to discharge. -Psychiatry will sign off at this point 02/02/19 09:49
[2019-02-02 09:57] LABS: Glucose,Whole Blood 129 mg/dL (75-99)
[2019-02-02 11:38] LABS: Glucose,Whole Blood 102 mg/dL (75-99)
[2019-02-02] MEDS: traMADol 50 MG TAB PO PRN ×2 (12:25→18:31)
[2019-02-02 14:03] LABS: IgG Subclass 3 35.9 mg/dL (11.0-85.0); IgG Subclass 4 57.9 mg/dL (3.0-175.0)
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
[2019-02-02 16:50] LABS: Glucose,Whole Blood 88 mg/dL (75-99)
--- NOTE | 2019-02-02 21:57 | P.PN ---
Subjective Progress Note Date: 02/02/19 Principal diagnosis: Acute pancreatitis Patient seen lying in bed reporting abdominal pain is improved. She does report some worsening of symptoms when she tried a Popsicle today. No nausea or vomiting. Objective - Vital Signs Vital signs: Vital Signs Temp 97.8 F 02/02/19 07:00 Pulse 80 02/02/19 07:00 Resp 18 02/02/19 07:00 BP 155/76 02/02/19 07:00 Pulse Ox 94 L 02/02/19 07:00 Intake & Output 02/01/19 02/02/19 02/02/19 18:59 06:59 18:59 Other: # Voids 3 2 - Exam On physical examination, patient appears comfortable in no apparent distress. HEAD: Normocephalic, atraumatic. EYES: No scleral icterus. No conjunctival injection. MOUTH: No lesions, tongue midline. NECK: Trachea midline, no gross abnormalities. ABDOMEN: Soft, obese and mildly tender to palpation. Bowel sounds are positive. No organomegaly. No guarding or rigidity. EXTREMITIES: No pedal edema. SKIN: No rashes, no jaundice. NEUROLOGIC: Alert and oriented x3. No focal deficits. - Labs CBC & Chem 7: 02/02/19 06:51 02/02/19 06:51 Labs: Abnormal Lab Results - Last 24 Hours (Table) 02/01/19 02/02/19 02/02/19 Range/Units 03:25 06:51 09:56 Chloride 111 H (98-107) mmol/L Carbon Dioxide 20 L (22-30) mmol/L POC Glucose (mg/dL) 129 H (75-99) mg/dL Calcium 7.7 L (8.4-10.2) mg/dL Total Protein 6.1 L (6.3-8.2) g/dL Albumin 3.3 L (3.5-5.0) g/dL LDL Cholesterol, Calc 131 H (0-99) mg/dL HDL Cholesterol 39 L (40-60) mg/dL Lipase 1146 H (23-300) U/L Assessment and Plan Assessment: Uncomplicated pancreatitis 64-year-old female presenting with complaints of abdominal pain found to have associated elevation in her amylase and lipase consistent with diagnosis of cruz creatitis. Previous episodes of pancreatitis possibly related to medications or gallstones. Currently she is status post cholecystectomy. Liver enzymes within normal limits. Unknown etiology, at this time will order autoimmune work-up which has been negative to date. Triglycerides within normal limits. Plan: Supportive care Diet as tolerated Continue IV fluid hydration Continue pain control Encourage ambulation MAGALIS pending and IgG4 levels ordered US abdomen essentially normal except for some CBD dilation likely secondary to the postcholecystectomy state Patient may benefit from MRI 6 to 8 weeks for further evaluation of the pancreas and to rule out cyst/mass Thank you for allowing us to participate in the care of the patient we will continue to follow
[2019-02-02 22:04] LABS: Glucose,Whole Blood 78 mg/dL (75-99)
[2019-02-03] MEDS: traMADol 50 MG TAB PO PRN ×2 (03:39→17:22)
[2019-02-03] MEDS: ONDANSETRON 4 MG/2 ML VIAL IVP PRN ×2 (03:43→13:06)
[2019-02-03 03:56] LABS: Glucose,Whole Blood 84 mg/dL (75-99)
[2019-02-03] MEDS: ACETAMINOPHEN TAB 500 MG TAB PO PRN ×3 (05:33→19:03)
[2019-02-03 06:56] LABS: Glucose,Whole Blood 108 mg/dL (75-99)
[2019-02-03 08:16] LABS: ALT 31 U/L (9-52); AST 32 U/L (14-36); African American GFR (CKD) >90 (>60 ml/min/1.73 sqM); Albumin 3.7 g/dL (3.5-5.0); Alkaline Phosphatase 63 U/L (38-126); Anion Gap 9 mmol/L; Blood Urea Nitrogen 6 mg/dL (7-17); Calcium 8.2 mg/dL (8.4-10.2); Carbon Dioxide 26 mmol/L (22-30); Chloride 106 mmol/L (98-107); Glucose 101 mg/dL (74-99); Non-African American GFR(CKD) >90 (>60 ml/min/1.73 sqM); Potassium 3.8 mmol/L (3.5-5.1); Sodium 141 mmol/L (137-145); Total Bilirubin 0.9 mg/dL (0.2-1.3); Total Protein 6.8 g/dL (6.3-8.2)
[2019-02-03] MEDS: KETOROLAC 30 MG/ML 1 ML VIAL IVP PRN ×3 (08:39→22:05)
[2019-02-03] MEDS: METOPROLOL SUCCINATE (ER) 25 MG TAB.ER.24H PO SCH (08:40)
[2019-02-03] MEDS: PANTOPRAZOLE 40 MG/10 ML VIAL IVP SCH ×2 (08:40→19:06)
[2019-02-03] MEDS: ASPIRIN 81 MG PO SCH (08:40)
[2019-02-03] MEDS: SODIUM CHLORIDE 0.9% 1,000 ML IV SCH ×2 (09:51→22:06)
[2019-02-03 11:59] LABS: Glucose,Whole Blood 96 mg/dL (75-99)
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
[2019-02-03 16:42] LABS: Glucose,Whole Blood 104 mg/dL (75-99)
[2019-02-03 20:39] LABS: Glucose,Whole Blood 116 mg/dL (75-99)
--- NOTE | 2019-02-03 23:06 | P.PN ---
Subjective Progress Note Date: 02/03/19 Principal diagnosis: Acute pancreatitis Patient seen lying in bed reporting abdominal pain is improved. She is going to try a full liquid diet today. Objective - Vital Signs Vital signs: Vital Signs Temp 98.1 F 02/03/19 07:00 Pulse 69 02/03/19 07:00 Resp 17 02/03/19 07:00 BP 156/87 02/03/19 07:00 Pulse Ox 92 L 02/03/19 07:00 Intake & Output 02/02/19 02/03/19 02/03/19 18:59 06:59 18:59 Intake Total 150 Balance 150 Intake: Oral 150 Other: # Voids 4 1 - Exam On physical examination, patient appears comfortable in no apparent distress. HEAD: Normocephalic, atraumatic. EYES: No scleral icterus. No conjunctival injection. MOUTH: No lesions, tongue midline. NECK: Trachea midline, no gross abnormalities. ABDOMEN: Soft, obese and mildly tender to palpation. Bowel sounds are positive. No organomegaly. No guarding or rigidity. EXTREMITIES: No pedal edema. SKIN: No rashes, no jaundice. NEUROLOGIC: Alert and oriented x3. No focal deficits. - Labs CBC & Chem 7: 02/02/19 06:51 02/03/19 07:40 Labs: Abnormal Lab Results - Last 24 Hours (Table) 02/03/19 02/03/19 Range/Units 06:54 07:40 BUN 6 L (7-17) mg/dL Glucose 101 H (74-99) mg/dL POC Glucose (mg/dL) 108 H (75-99) mg/dL Calcium 8.2 L (8.4-10.2) mg/dL Lipase 730 H (23-300) U/L Assessment and Plan Assessment: Uncomplicated pancreatitis 64-year-old female presenting with complaints of abdominal pain found to have associated elevation in her amylase and lipase consistent with diagnosis of pancreatitis. Previous episodes of pancreatitis possibly related to medications or gallstones. Currently she is status post cholecystectomy. Liver enzymes within normal limits. Unknown etiology, at this time will order autoimmune work-up which has been negative to date. Triglycerides within normal limits. Plan: Supportive care Diet as tolerated Continue IV fluid hydration Continue pain control Encourage ambulation MAGALIS pending and IgG4 levels ordered US abdomen essentially normal except for some CBD dilation likely secondary to the postcholecystectomy state Patient may benefit from MRI 6 to 8 weeks for further evaluation of the pancreas and to rule out cyst/mass Thank you for allowing us to participate in the care of the patient we will continue to follow
[2019-02-04 01:56] VITALS: TEMP 98.1
[2019-02-04] MEDS: ACETAMINOPHEN TAB 500 MG TAB PO PRN (01:59)
[2019-02-04] MEDS: ONDANSETRON 4 MG/2 ML VIAL IVP PRN ×2 (04:16→10:54)
[2019-02-04] MEDS: traMADol 50 MG TAB PO PRN (04:20)
[2019-02-04] MEDS: SODIUM CHLORIDE 0.9% 1,000 ML IV SCH (04:44)
[2019-02-04 06:54] LABS: Glucose,Whole Blood 73 mg/dL (75-99)
[2019-02-04] MEDS: ASPIRIN 81 MG PO SCH (07:13)
[2019-02-04 07:44] VITALS: BP 172/90; PULSE 74; RESP 16
[2019-02-04] MEDS: METOPROLOL SUCCINATE (ER) 25 MG TAB.ER.24H PO SCH (07:44)
[2019-02-04] MEDS: PANTOPRAZOLE 40 MG/10 ML VIAL IVP SCH (07:44)
[2019-02-04 08:05] LABS: Basophils % (A) 1 %; Eosinophils # (A) 0.2 k/uL (0-0.7); Eosinophils % (A) 3 %; HCT 40.8 % (34.0-46.0); HGB 13.3 gm/dL (11.4-16.0); Lymphocytes # (A) 1.3 k/uL (1.0-4.8); Lymphocytes % (A) 20 %; MCH 30.1 pg (25.0-35.0); MCHC 32.7 g/dL (31.0-37.0); Mean Platelet Volume 8.3; Monocytes # (A) 0.5 k/uL (0-1.0); Monocytes % (A) 7 %; Neutrophils # (A) 4.5 k/uL (1.3-7.7); Neutrophils % (A) 68 %; Platelet Count 228 k/uL (150-450); RBC 4.43 m/uL (3.80-5.40); RDW 13.2 % (11.5-15.5); WBC 6.6 k/uL (3.8-10.6)
[2019-02-04 08:12] LABS: MCV 91.9 fL (80.0-100.0)
[2019-02-04 08:37] LABS: ALT 29 U/L (4-34); AST 29 U/L (14-36); African American GFR (CKD) >90 (>60 ml/min/1.73 sqM); Albumin 3.9 g/dL (3.5-5.0); Alkaline Phosphatase 69 U/L (38-126); Anion Gap 11 mmol/L; Blood Urea Nitrogen 6 mg/dL (7-17); Calcium 8.6 mg/dL (8.4-10.2); Carbon Dioxide 24 mmol/L (22-30); Chloride 109 mmol/L (98-107); Glucose 76 mg/dL (74-99); Non-African American GFR(CKD) >90 (>60 ml/min/1.73 sqM); Potassium 3.5 mmol/L (3.5-5.1); Sodium 144 mmol/L (137-145); Total Bilirubin 0.8 mg/dL (0.2-1.3); Total Protein 6.9 g/dL (6.3-8.2)
[2019-02-04] MEDS: KETOROLAC 30 MG/ML 1 ML VIAL IVP PRN (10:54)
[2019-02-04 11:27] LABS: Glucose,Whole Blood 78 mg/dL (75-99)
[2019-02-04 13:03] LABS: ANA Pattern See Footnote
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
--- NOTE | 2019-02-08 06:10 | CDI ---
Documentation Clarification Form Date: 02/08/2019 5:59:12 AM From: Kiara Holden Phone: If you have a question about this query, please contact Blanca Nunez Legal Administrative Secretary at [phone] between 8am and 5pm. Admit Date: 02/01/2019 5:43:00 AM Patient Name: Opal Lassiter Visit Number: [id number] Discharge Date: 02/04/2019 2:05:00 PM ATTENTION: The Clinical Documentation Specialists (CDI) and [facility] Coding Staff appreciate your assistance in clarifying documentation. Please respond to the clarification below the line at the bottom and electronically sign. The CDI & [facility] Coding staff will review the response and follow-up if needed. Please note: Queries are made part of the Legal Health Record. If you have any questions, please contact the author of this message via ITS. Dr. Salgado Sheet On exam per [facility] patient's abdomen described as "Soft, obese, non-tender" Patient's BMI is 40.7. Please clarify if patient has obesity. History/Risk Factors: pancreatitis Patients weight is 117.934 kg. Patients height is 5'7" Calculated BMI is 40.7 In order to capture the severity of condition associated with patient BMI of 40.7 and abdomen being soft, obese, a clinical diagnosis needs to be documented by the physician. Please clarify: Overweight Obesity, Class 1 Obesity, Class 2 Extreme (Morbid) (severe) obesity Other, please specify ____ Unable to determine NIH Classification for BMI: Overweight BMI 2529.9 Obesity (Class 1) BMI 3034.9 Obesity (Class 2) BMI 3539.9 Extreme (Morbid) (severe) obesity BMI =40 Unable to determine, i have not seen the patient or evaluated her MTDD
== END 2019-02-04 14:05 | disposition home or self-care (01) | DRG 439 ==
LOC: EC 02:31 → 4SSUR 05:43
PROVIDERS: ADMIT Internal Medicine; ATTEND Internal Medicine
DX: K85.90 Acute pancreatitis without necrosis or infection, unspecified (principal); T74.91XA Unspecified adult maltreatment, confirmed, initial encounter; J44.9 Chronic obstructive pulmonary disease, unspecified; I10 Essential (primary) hypertension; F32.9 Major depressive disorder, single episode, unspecified; E78.5 Hyperlipidemia, unspecified; E66.9 Obesity, unspecified; K27.9 Peptic ulcer, site unspecified, unspecified as acute or chronic, without hemorrhage or perforation; K29.70 Gastritis, unspecified, without bleeding; Z79.82 Long term (current) use of aspirin; Z82.0 Family history of epilepsy and other diseases of the nervous system; Z82.49 Family history of ischemic heart disease and other diseases of the circulatory system; Z87.891 Personal history of nicotine dependence; Z88.5 Allergy status to narcotic agent; Z90.49 Acquired absence of other specified parts of digestive tract; Z90.710 Acquired absence of both cervix and uterus; Z88.2 Allergy status to sulfonamides; Z88.8 Allergy status to other drugs, medicaments and biological substances; Z91.041 Radiographic dye allergy status; Z87.01 Personal history of pneumonia (recurrent); Z79.1 Long term (current) use of non-steroidal anti-inflammatories (NSAID); M19.90 Unspecified osteoarthritis, unspecified site
CPT/HCPCS: 36415; 76705; 80053; 80061; 82150; 82787; 83690; 85025; 85027; 86038; 86039; 94640; 94760; 96360; 96361; 99285